=== PATIENT | female | born 1945 | race Caucasian/White ===

== ENCOUNTER 2016-11-19 15:35 | Inpatient (IN) | payer OTHER ==
[~2016-11-19] VITALS: Ht 152.4 cm; Wt 72.7 kg
[~2016-11-19 15:35] MED LIST: ASPIR 8181 M1 PO; ASPIRIN EC325 MG PO; AUGMENTIN875 MG PO; CALCIUM 600 +1 EA15 PO; CITRACAL W/V1 TABLE1 PO; ENDOCET 5-3251 EACH PO; Ecotrin PO; LEVOFLOXACIN500 MG PO; MUCINEX600 MG PO; Oscal 500 w/Vitamin PO; PRESERVISIO1 CAPSULE PO; PROTONIX40 MG PO; Protonix PO; REFRESH TEARS15 ML BOTH EYES; ROBITUSSIN AC,T10 ML PO; TESSALON PERLE100 MG PO; TUDORZA PRESS400 MCG IH; TYLENOL325 M1 PO; Tylenol Regular Stre PO; ULTRAM50 MG PO; VITAMIN B-12500 MC3 PO; VITAMIN B-12500 MC4 PO; VITAMIN D1000 INTUN PO; Vitamin B-12 PO; [UNRECOGNIZED DRUG - OTHER] PO
[2016-11-19 16:09] LABS: HEMATOCRIT 40.6 % (36.0-46.0); MCH 31.7 PG (29.0-34.0); MCHC 34.5 G/DL (30.0-36.0); MCV 91.9 FL (83-99); MEAN PLAT.VOLUME 10.6 uM^3 (9.5-12.4); PLATELET COUNT 223 K/uL (156-360); RBC DIS.WIDTH-CV 12.4 % (11.8-14.6); RBC DIS.WIDTH-SD 40.6 % (39-53); RED BLOOD COUNT 4.42 M/uL (3.80-5.20); WHITE BLOOD COUNT 11.1 K/uL (4.1-10.2)
[2016-11-19 16:18] LABS: CHLORIDE 108 mEq/L (99-109); SODIUM 142 mEq/L (136-147)
[2016-11-19 16:19] LABS: GLUCOSE 122 mg/dL (70-99)
[2016-11-19 16:21] LABS: ANION GAP 10 MEQ/L (2-14)
[2016-11-19 16:23] LABS: GFR ESTIMATE (CALCULATED) 47 mL/min/
[2016-11-19 16:24] LABS: UREA NITROGEN (BUN) 10 mg/dL (9-23)
[2016-11-19 18:46] LABS: INTER. NORMALIZED RATIO 1.1; PROTHROMBIN TIME 11.2 (9.2-11.2); PTT 27.1 (25-32)
[2016-11-19 18:50] LABS: TOTAL BILIRUBIN 0.5 mg/dL (0.0-1.0)
[2016-11-19 18:51] LABS: ALKALINE PHOSPHATASE 100 IU/L (3-129)
[2016-11-19 18:53] LABS: DIRECT BILIRUBIN 0.2 mg/dL (0.0-0.3)
[2016-11-19 18:54] LABS: LIPASE 17 U/L (1.0-51.0)
[2016-11-19 19:08] LABS: ADD MIUA? YES; BILIRUBIN NEGATIVE; BLOOD NEGATIVE; COLOR YELLOW ((YELLOW)); GLUCOSE (STRIP) NEGATIVE; KETONES NEGATIVE; LEUKOCYTES TRACE; NITRITE NEGATIVE; PROTEIN (STRIP) NEGATIVE; SPECIFIC GRAVITY 1.009 (1.000-1.030); UROBILINOGEN 0.2 MG/DL (0.2-1.0)
[2016-11-19 19:11] LABS: BACTERIA RARE /HPF; EPITHELIAL CELLS RARE /HPF; MUCUS TRACE /LPF; RED BLOOD CELLS 0-5 /HPF (0-5); UCUL ADDED? NO
[2016-11-19 19:12] LABS: CASTS NONE SEEN /LPF; CRYSTALS NONE SEEN
[2016-11-19] MEDS ORDERED: PROBIOTIC1 EAC2 PO (21:55)
[2016-11-19] MEDS ORDERED: BACTRIM,SEPT1 TABLET PO (21:56)
[2016-11-19] MEDS ORDERED: VITAMIN B-12500 MC5 SL (21:56)
[2016-11-20] VITALS (7 sets, daily range): BP systolic 100–134; BP diastolic 62–78
[2016-11-20 00:26] LABS: HEMATOCRIT 36.8 % (36.0-46.0); MCV 92.7 FL (83-99)
[2016-11-20 01:57] LABS: ADD MIUA? NO; BILIRUBIN NEGATIVE; BLOOD NEGATIVE; COLOR STRAW ((YELLOW)); GLUCOSE (STRIP) NEGATIVE; KETONES NEGATIVE; LEUKOCYTES NEGATIVE; NITRITE NEGATIVE; PROTEIN (STRIP) NEGATIVE; SPECIFIC GRAVITY 1.026 (1.000-1.030); UROBILINOGEN 0.2 MG/DL (0.2-1.0)
[2016-11-20 07:18] LABS: HEMATOCRIT 35.1 % (36.0-46.0); MCV 93.6 FL (83-99)
[2016-11-20 07:50] LABS: ALKALINE PHOSPHATASE 72 IU/L (3-129); ANION GAP 9 MEQ/L (2-14); CHLORIDE 110 MEQ/L (99-109); GFR ESTIMATE (CALCULATED) > 59 mL/min/; POTASSIUM 3.7 MEQ/L (3.7-5.4); SAMPLE HEMOLYSIS CHECK 0; SAMPLE ICTERIC CHECK 0; SAMPLE LIPEMIA CHECK 0; SODIUM 141 MEQ/L (136-147); TOTAL BILIRUBIN 0.7 MG/DL (0.0-1.0); UREA NITROGEN (BUN) 6 mg/dL (9-23)
[2016-11-20 07:57] LABS: GLUCOSE 82 mg/dL (70-99)
[2016-11-20 11:55] LABS: MCV 94.5 FL (83-99)
[2016-11-20 18:02] LABS: HEMATOCRIT 36.2 % (36.0-46.0); MCV 93.8 FL (83-99)
[2016-11-21 04:13] VITALS: BP 104/62
[2016-11-21 06:25] LABS: ANION GAP 10 MEQ/L (2-14); CHLORIDE 109 MEQ/L (99-109); GFR ESTIMATE (CALCULATED) > 59 mL/min/; GLUCOSE 82 mg/dL (70-99); POTASSIUM 3.5 MEQ/L (3.7-5.4); SAMPLE HEMOLYSIS CHECK 0; SAMPLE ICTERIC CHECK 0; SAMPLE LIPEMIA CHECK 0; SODIUM 141 MEQ/L (136-147); UREA NITROGEN (BUN) 5 mg/dL (9-23)
[2016-11-21 06:30] LABS: HEMATOCRIT 39.1 % (36.0-46.0); MCH 32.2 PG (29.0-34.0); MCHC 30.7 G/DL (30.0-36.0); RBC DIS.WIDTH-CV 13.5 % (11.8-14.6); RED BLOOD COUNT 3.73 M/uL (3.80-5.20)
[2016-11-21 06:34] LABS: MCV 104.8 FL (83-99); WHITE BLOOD COUNT 5.9 K/uL (4.1-10.2)
[2016-11-21 07:50] VITALS: BP 156/88
[2016-11-21 13:50] VITALS: BP 130/74
[2016-11-21 15:37] VITALS: BP 120/67
[2016-11-21 19:31] VITALS: BP 113/68
[2016-11-21 23:12] VITALS: BP 105/57
[2016-11-22 03:41] VITALS: BP 99/55
[2016-11-22 07:28] VITALS: BP 109/71
[2016-11-22 11:15] LABS: EOSINOPHIL COUNT 0.2 K/uL (0-0.3); HEMATOCRIT 41.2 % (36.0-46.0); IMMATURE GRANULOCYTE (%) 0.3 % (0.0-0.7); LYMPHOCYTE COUNT 1.9 K/uL (1.0-2.8); MCH 32.3 PG (29.0-34.0); MONOCYTE (%) 5.6 % (3-12); MONOCYTE COUNT 0.4 K/uL (0-0.8); NEUTROPHIL (%) 62.4 % (45-76); NEUTROPHIL COUNT 4.1 K/uL (1.8-6.4); RBC DIS.WIDTH-CV 12.6 % (11.8-14.6); RBC DIS.WIDTH-SD 43.8 % (39-53); RED BLOOD COUNT 4.34 M/uL (3.80-5.20); WHITE BLOOD COUNT 6.6 K/uL (4.1-10.2)
[2016-11-22 11:19] LABS: MCV 94.9 FL (83-99)
[2016-11-22 11:27] VITALS: BP 105/69
[2016-11-22 11:34] LABS: ANION GAP 11 MEQ/L (2-14); CHLORIDE 105 MEQ/L (99-109); GFR ESTIMATE (CALCULATED) 58 mL/min/; GLUCOSE 101 mg/dL (70-99); POTASSIUM 3.5 MEQ/L (3.7-5.4); SAMPLE HEMOLYSIS CHECK 0; SAMPLE ICTERIC CHECK 0; SAMPLE LIPEMIA CHECK 0; SODIUM 140 MEQ/L (136-147); UREA NITROGEN (BUN) 8 mg/dL (9-23)
[2016-11-22] MEDS ORDERED: CIPROFLOXACIN500 M1 PO (11:49)
[2016-11-22] MEDS ORDERED: METRONIDAZOLE500 MG PO (11:52)
[2016-11-22 11:54] LABS: MEAN PLAT.VOLUME 11.2 uM^3 (9.5-12.4); PLAT.SUFFICIENCY ADEQUATE; PLATELET COUNT 227 K/uL (156-360)
== END 2016-11-22 13:17 | disposition home or self-care (01) | DRG 385 ==
LOC: RME 15:35 → EME 15:35 → EDOF 22:47 → 4SOUTH 23:22
PROVIDERS: Internal Medicine; Nurse Practitioner Family; Physician Assistant; Student in an Organized Health Care Education/Training Program
PROC: 0DJD8ZZ Inspection of Lower Intestinal Tract, Via Natural or Artificial Opening Endoscopic (ICD-10-PCS; principal; 2016-11-21)
PROC: 0DBP8ZX Excision of Rectum, Via Natural or Artificial Opening Endoscopic, Diagnostic (ICD-10-PCS; principal; 2016-11-21)
PROC: 0DBM8ZX Excision of Descending Colon, Via Natural or Artificial Opening Endoscopic, Diagnostic (ICD-10-PCS; principal; 2016-11-21)
DX: K50.111 Crohn's disease of large intestine with rectal bleeding (principal); K57.91 Diverticulosis of intestine, part unspecified, without perforation or abscess with bleeding; N39.0 Urinary tract infection, site not specified; K21.0 Gastro-esophageal reflux disease with esophagitis; K22.2 Esophageal obstruction; K44.9 Diaphragmatic hernia without obstruction or gangrene; G89.29 Other chronic pain; H91.93 Unspecified hearing loss, bilateral; G47.30 Sleep apnea, unspecified; Z96.653 Presence of artificial knee joint, bilateral; K64.4 Residual hemorrhoidal skin tags
CPT/HCPCS: 74177; 80048; 80053; 80076; 81003; 83690; 85014; 85018; 85025; 85027; 85610; 85730; 86850; 86900; 86901; 87086; 88305; 94640; 94640 76; 99281; 99285; C9113; J0696; J0744; J2270; J2405; J3010; J7030; J7040; J7050; S0028; S0030

== ENCOUNTER → 2017-05-13 | Outpatient (CLI) | payer OTHER ==
[~2017-05-13] MED LIST changes: +BACTRIM,SEPT1 TABLET PO; +CIPROFLOXACIN500 M1 PO; +METRONIDAZOLE500 MG PO; +PROBIOTIC1 EAC2 PO; +VITAMIN B-12500 MC5 SL
== END | disposition home or self-care (01) ==
LOC: NUC 06:43
DX: R10.9 Unspecified abdominal pain (principal); R14.2 Eructation; K30 Functional dyspepsia
CPT/HCPCS: 78264; A9541

== ENCOUNTER 2017-10-16 15:16 | Inpatient (IN) | payer OTHER ==
[~2017-10-16] VITALS: Ht 162.6 cm; Wt 76.4 kg
[2017-10-16 15:51] LABS: HEMATOCRIT 40.3 % (36.0-46.0); HEMOGLOBIN 13.6 G/DL (11.9-15.5); MCHC 33.7 G/DL (30.0-36.0); MCV 94.8 FL (83-99); PLATELET COUNT 217 K/uL (156-360); RBC DIS.WIDTH-CV 12.2 % (11.8-14.6); RBC DIS.WIDTH-SD 42.9 % (39-53); RED BLOOD COUNT 4.25 M/uL (3.80-5.20); WHITE BLOOD COUNT 7.9 K/uL (4.1-10.2)
[2017-10-16 15:59] LABS: CHLORIDE 107 mEq/L (99-109); POTASSIUM 3.9 mEq/L (3.7-5.4); SODIUM 140 mEq/L (136-147)
[2017-10-16 16:00] LABS: GLUCOSE 162 mg/dL (70-99)
[2017-10-16 16:04] LABS: GFR ESTIMATE (CALCULATED) 58 mL/min/
[2017-10-16 16:05] LABS: UREA NITROGEN (BUN) 11 mg/dL (9-23)
[2017-10-16 18:09] LABS: TROP-I INTERPRETATION NEGATIVE; TROPONIN-I < 0.01 ng/mL (0.0-0.30)
[2017-10-16 19:18] LABS: APPEARANCE CLEAR ((CLEAR)); BILIRUBIN NEGATIVE; BLOOD NEGATIVE; COLOR YELLOW ((YELLOW)); GLUCOSE (STRIP) NEGATIVE; KETONES NEGATIVE; LEUKOCYTES NEGATIVE; NITRITE NEGATIVE; PROTEIN (STRIP) NEGATIVE; SPECIFIC GRAVITY 1.008 (1.000-1.030); UROBILINOGEN 0.2 MG/DL (0.2-1.0)
[2017-10-16] MEDS ORDERED: ZOFRAN ODT4 MG PO (19:29)
[2017-10-16 19:55] LABS: LIPASE 16 U/L (1.0-51.0)
[2017-10-16 20:44] LABS: TOTAL PROTEIN 7.2 g/dL (6.4-8.3)
[2017-10-16 20:46] LABS: TOTAL BILIRUBIN 0.6 mg/dL (0.0-1.0)
[2017-10-16 20:47] LABS: ALKALINE PHOSPHATASE 81 IU/L (3-129)
[2017-10-16 20:50] LABS: ALT (GPT) 17 IU/L (3-49); AST (GOT) 26 IU/L (2-34); DIRECT BILIRUBIN 0.2 mg/dL (0.0-0.3)
[2017-10-16] MEDS ORDERED: DAILY VITAMIN1 EAC4 PO (21:14)
[2017-10-17 04:14] LABS: TROP-I INTERPRETATION NEGATIVE; TROPONIN-I < 0.01 ng/mL (0.0-0.30)
[2017-10-17 17:39] VITALS: BP 138/73
[2017-10-17 19:44] VITALS: BP 120/71
[2017-10-17 23:00] VITALS: BP 136/66
[2017-10-18 03:38] VITALS: BP 112/66
[2017-10-18 07:00] VITALS: BP 134/71
[2017-10-18 07:21] LABS: BASOPHIL (%) 0.9 % (0-1); BASOPHIL COUNT 0.1 K/uL (0-0.1); EOSINOPHIL (%) 4.2 % (0-5); EOSINOPHIL COUNT 0.3 K/uL (0-0.3); HEMATOCRIT 38.1 % (36.0-46.0); HEMOGLOBIN 12.8 G/DL (11.9-15.5); IMMATURE GRANULOCYTE (%) 0.3 % (0.0-0.7); LYMPHOCYTE (%) 43.3 % (15-42); LYMPHOCYTE COUNT 2.9 K/uL (1.0-2.8); MCH 32.2 PG (29.0-34.0); MCHC 33.6 G/DL (30.0-36.0); MONOCYTE (%) 8.1 % (3-12); MONOCYTE COUNT 0.5 K/uL (0-0.8); NEUTROPHIL (%) 43.2 % (45-76); NEUTROPHIL COUNT 2.9 K/uL (1.8-6.4); PLATELET COUNT 195 K/uL (156-360); RBC DIS.WIDTH-CV 12.3 % (11.8-14.6); RBC DIS.WIDTH-SD 43.5 % (39-53); RED BLOOD COUNT 3.97 M/uL (3.80-5.20); WHITE BLOOD COUNT 6.6 K/uL (4.1-10.2)
[2017-10-18 07:44] LABS: CHLORIDE 110 MEQ/L (99-109); CREATININE 0.9 MG/DL (0.6-1.3); GFR ESTIMATE (CALCULATED) > 59 mL/min/; POTASSIUM 3.9 MEQ/L (3.7-5.4); SODIUM 143 MEQ/L (136-147); UREA NITROGEN (BUN) 7 mg/dL (9-23)
[2017-10-18 07:45] LABS: GLUCOSE 90 mg/dL (70-99)
[2017-10-18 12:21] VITALS: BP 117/63
[2017-10-18 16:07] VITALS: BP 122/78
[2017-10-18 23:57] VITALS: BP 122/69
[2017-10-19 08:30] VITALS: BP 115/67
[2017-10-19] MEDS ORDERED: METRONIDAZOLE500 MG PO (12:09)
[2017-10-19] MEDS ORDERED: CIPRO500 MG PO (12:11)
== END 2017-10-19 13:20 | disposition home or self-care (01) | DRG 392 ==
LOC: EME 15:16 → EDOF 22:33 → ENRESERV 22:36 → 2EAST 10-17 13:26
PROVIDERS: Hospitalist; Internal Medicine; Nurse Practitioner Family
DX: K52.9 Noninfective gastroenteritis and colitis, unspecified (principal); E86.0 Dehydration; I95.1 Orthostatic hypotension; I71.4 Abdominal aortic aneurysm, without rupture; G89.29 Other chronic pain; H91.90 Unspecified hearing loss, unspecified ear; K21.9 Gastro-esophageal reflux disease without esophagitis; Z79.82 Long term (current) use of aspirin; Z90.710 Acquired absence of both cervix and uterus; Z96.659 Presence of unspecified artificial knee joint
CPT/HCPCS: 70450; 71046; 74177; 80048; 80076; 81003; 83605; 83690; 83735; 84484; 85025; 85027; 87040; 93005; 94640; 94640 76; 99281; 99285; J0456; J0744; J1644; J1956; J7030; S0030

== ENCOUNTER 2018-04-11 09:54 | Emergency (ER) | payer OTHER ==
[~2018-04-11] VITALS: Ht 162.6 cm; Wt 73.7 kg
[~2018-04-11 09:54] MED LIST changes: +CIPRO500 MG PO; +DAILY VITAMIN1 EAC4 PO; +ZOFRAN ODT4 MG PO
[2018-04-11 10:28] LABS: HEMATOCRIT 33.9 % (36.0-46.0); HEMOGLOBIN 11.9 G/DL (11.9-15.5); MCHC 35.1 G/DL (30.0-36.0); MCV 93.9 FL (83-99); PLATELET COUNT 267 K/uL (156-360); RBC DIS.WIDTH-CV 11.8 % (11.8-14.6); RBC DIS.WIDTH-SD 40.4 % (39-53); RED BLOOD COUNT 3.61 M/uL (3.80-5.20)
[2018-04-11 10:42] LABS: CHLORIDE 110 mEq/L (99-109); POTASSIUM 3.3 mEq/L (3.7-5.4); SODIUM 144 mEq/L (136-147)
[2018-04-11 10:44] LABS: ALBUMIN 3.9 g/dL (3.2-4.8)
[2018-04-11 10:46] LABS: GLUCOSE 105 mg/dL (70-99); TOTAL PROTEIN 7.4 g/dL (6.4-8.3)
[2018-04-11 10:48] LABS: TOTAL BILIRUBIN 1.5 mg/dL (0.0-1.0)
[2018-04-11 10:50] LABS: ALKALINE PHOSPHATASE 95 IU/L (3-129); CREATININE 0.9 mg/dL (0.6-1.3); GFR ESTIMATE (CALCULATED) > 59 mL/min/
[2018-04-11 10:51] LABS: UREA NITROGEN (BUN) 7 mg/dL (9-23)
[2018-04-11 10:52] LABS: AST (GOT) 29 IU/L (2-34)
[2018-04-11 10:53] LABS: ALT (GPT) 26 IU/L (3-49)
[2018-04-11 12:22] LABS: APPEARANCE CLEAR ((CLEAR)); BILIRUBIN NEGATIVE; BLOOD MODERATE; COLOR YELLOW ((YELLOW)); GLUCOSE (STRIP) NEGATIVE; KETONES NEGATIVE; LEUKOCYTES LARGE; NITRITE POSITIVE; PROTEIN (STRIP) NEGATIVE; SPECIFIC GRAVITY 1.005 (1.000-1.030); UROBILINOGEN 0.2 MG/DL (0.2-1.0)
[2018-04-11 12:40] LABS: BACTERIA RARE /HPF; EPITHELIAL CELLS NONE SEEN /HPF; MUCUS NONE SEEN /LPF; RED BLOOD CELLS 0-5 /HPF (0-5); UCUL ADDED? YES; WHITE BLOOD CELLS 40-50 /HPF (0-5)
[2018-04-11] MEDS ORDERED: BACTRIM,SEPT1 TABLET PO (15:04)
[2018-04-11] MEDS ORDERED: MIRALAX255 GM PO (15:05)
[2018-04-11] MEDS ORDERED: FLEET ENEMA-AD118 ML PR (15:05)
[2018-04-11 15:58] VITALS: BP 122/72
== END 2018-04-11 15:51 | disposition home or self-care (01) ==
LOC: EME 09:54
DX: N39.0 Urinary tract infection, site not specified (principal); K59.00 Constipation, unspecified; Z96.0 Presence of urogenital implants; B96.4 Proteus (mirabilis) (morganii) as the cause of diseases classified elsewhere; I71.4 Abdominal aortic aneurysm, without rupture; K44.9 Diaphragmatic hernia without obstruction or gangrene; M43.16 Spondylolisthesis, lumbar region; M46.96 Unspecified inflammatory spondylopathy, lumbar region; K21.9 Gastro-esophageal reflux disease without esophagitis; Z79.82 Long term (current) use of aspirin; Z98.890 Other specified postprocedural states; Z90.49 Acquired absence of other specified parts of digestive tract; Z90.710 Acquired absence of both cervix and uterus
CPT/HCPCS: 74177; 80053; 81003; 85027; 87077; 87086; 87186; 99281; 99285; J0696; J1885; J2405; J3010; J7030